=== PATIENT | male | born 1980 | race Caucasian/White ===

== ENCOUNTER 2016-08-11 09:58 | Day surgery (SDC) | payer OTHER ==
[~2016-08-11] VITALS: Ht 185.4 cm; Wt 124.0 kg
[~2016-08-11 09:58] MED LIST: ALPR0.254 PO; ALPR1T PO; ALPR1TAB2 PO; AMPH30TA2 PO; CLN.1T PO; CLON0.2T PO; CYCL10TA9 PO; HCTZ12.5T PO; IBUP800T26 PO; NAPR500T3 PO; NS IV 1000 ML 1,000 ML ONE; OMEP10CA4 PO; OMEP40CA36 PO; OXYC30TA80 PO; TEST200V27 IM; TRAZ-28 PO; [UNRECOGNIZED DRUG - OTHER]
--- OUTSIDE RECORDS SUMMARY | 2016-08-11 10:02 | XMS REPORT | Continuity of Care Document ---
Author Author [facility] Organization [facility] Address Unknown Phone Unavailable Care Team Providers Care Medical Appliance Maker Name Role Phone IVAN MCKEON MD PCP Insurance Providers Payer Name Policy Number Subscriber Name Relationship Unknown Thomas Bermudez 18 Self / Same As Patient Advance Directives Directive Response Recorded Date/Time Advance Directives No 02/10/16 2:52pm Health Care Power of Solid Waste Engineer No 02/10/16 2:52pm Organ Donor Yes 02/10/16 2:52pm Resuscitation Status Full Code 02/10/16 2:52pm Chief Complaint and Reason for Visit Chief Complaint Substance Abuse Reason for Visit Prescription drug abuse Elevated liver enzymes Hypokalemia Problems Active Problems Medical Problem Onset Date Status Elevated liver enzymes Unknown Acute Epigastric pain Unknown Acute Headache Unknown Acute Hypertensive urgency Unknown Acute Hypertensive urgency Unknown Acute Hypokalemia Unknown Acute Prescription drug abuse Unknown Acute Right upper quadrant pain Unknown Acute Medications Current Home Medications Medication Dose Units Route Directions Days/Qty Instructions Start Date Hydrochlorothiazide 12.5 Mg 12.5 Mg Oral Daily 05/27/14 Clonidine Hcl 0.2 Mg 0.2 Mg Oral Twice A Day 12/17/15 Omeprazole 40 Mg 40 Mg Oral Daily 12/17/15 Dextroamphetamine/Amphetamine 30 Mg 30 Mg Oral Twice A Day 12/17/15 Naproxen 500 Mg 500 Mg Oral Twice A Day 12/17/15 Trazodone Hcl 50 Mg 100 Mg Oral Bedtime 02/10/16 Cyclobenzaprine Hcl 10 Mg 10 Mg Oral Three Times A Day as needed for Pain 07/04/16 Alprazolam 1 Mg 1 Mg Oral Four Times Daily as needed for Anxiety 11/22 Past Home Medications Medication Directions Ordered Status [Cyboxen] , 01/24/12 Discontinued Clonidine Hcl 0.1 Mg Tab, 0.2 Mg Oral Twice A Day 01/24/12 Discontinued Alprazolam 1 Mg Tablet, 1 Mg Oral Four Times Daily as needed for Anxiety 25/07 Discontinued Omeprazole 10 Mg Capsule.dr, 30 Mg Oral Daily 05/27/14 Discontinued Ibuprofen (Motrin) 800 Mg Tablet, 800 Mg Oral Three Times A Day 05/27/14 Discontinued Cyclobenzaprine Hcl (Flexeril) 10 Mg Tablet, 10 Mg Oral Three Times A Day as needed for Muscle Pain 05/27/14 Discontinued Oxycodone Hcl 30 Mg Tablet, 30 Mg Oral Three Times A Day as needed for Pain 12/17/15 Discontinued Testosterone Cypionate 200 Mg/1 Ml Vial, 100 Mg Intramusc As Directed Discontinued Alprazolam 0.25 Mg Tablet, 0.25 Mg Oral Every 8HRS 12/17/15 Discontinued Social History Social History Problem Response Recorded Date/Time Alcohol Use Denies Use 02/10/2016 2:52pm Recreational Drug Use Yes 02/10/2016 3:30pm Recent Foreign Travel No 02/10/2016 2:40pm Recent Infectious Disease Exposure No 02/10/2016 2:40pm Sexually Transmitted Disease No 02/10/2016 2:52pm Smoking Status Unknown if Ever Smoked 02/10/2016 2:52pm Query Response Start Date Stop Date Smoking Status Unknown if Ever Smoked Hospital Discharge Instructions No hospital discharge instructions. Plan of Care Discharge Date 02/10/16 4:22pm Disposition 01 HOME, SELF-CARE Condition at Discharge Stable Instructions/Education Provided ALCOHOL AND SUBSTANCE ABUSE Prescriptions See Medication Section Referrals IVAN MCKEON MD - Primary Care Physician IVAN MCKEON MD - Primary Care Physician SALINAS MCDONOUGH MD - Additional Instructions/Education KEEP YOUR APPOINTMENT WITH DR. MUNOZ ON WEDNESDAY AT [facility] KEEP YOUR APPOINTMENT WITH DR. MCDONOUGH ON 02/18/16 TO ESTABLISH CARE MOM NEEDS TO MONITOR AND DISPENSE ALL MEDICATIONS RETURN TO ER IF SYMPTOMS WORSEN All discharge instructions reviewed with patient and/or family. Voiced understanding. Functional Status No functional status results. Allergies, Adverse Reactions, Alerts No known allergies. Immunizations Name Given Type Tetanus Booster (TDap) Less than 5yrs Historical Vital Signs Acute Vital Signs Vital Response Date/Time Temperature (Fahrenheit) 98 degrees F (97.6 - 99.5) 02/10/2016 2:40pm Temperature (Calculated Celsius) 36.6696 degrees C (36.4 - 37.5) 02/10/2016 2 :40pm Pulse Rate (adult) 102 bpm (60 - 90) 02/10/2016 2:40pm Respiratory Rate 18 bpm (12 - 24) 02/10/2016 2:40pm O2 Sat by Pulse Oximetry 98 % (88 - 100) 02/10/2016 2:40pm Blood Pressure 140/106 mm Hg 02/10/2016 2:40pm Blood Pressure Mean 117 mm Hg 02/10/2016 2:40pm Pain Numeric Pain Scale 0-No Pain 02/10/2016 2:40pm Height (Feet) 6 feet 02/10/2016 2:40pm Height (Calculated Centimeters) 182.413530 cm 02/10/2016 2:40pm Weight (Pounds) 273 pounds 02/10/2016 2:40pm Weight (Calculated Kilograms) 123.646563 kilograms 02/10/2016 2:40pm Height 6 ft 0 in Weight 273 lb Body Mass Index 37.0 kg/m^2 Results Laboratory Results Test Name Result Units Flags Reference Collection Date/Time Result Date/ Time Comments White Blood Count 6.9 10^3/uL 4.3-11.0 02/10/2016 3:15pm 02/10/2016 3: 25pm Red Blood Count 5.14 10^6/uL 4.35-5.85 02/10/2016 3:15pm 02/10/2016 3: 25pm Hemoglobin 13.0 G/DL L 13.3-17.7 02/10/2016 3:15pm 02/10/2016 3:25pm Hematocrit 40 % 40-54 02/10/2016 3:15pm 02/10/2016 3:25pm Mean Corpuscular Volume 77 FL L 80-99 02/10/2016 3:15pm 02/10/2016 3: 25pm Mean Corpuscular Hemoglobin 25 PG 25-34 02/10/2016 3:15pm 02/10/2016 3: 25pm Mean Corpuscular Hemoglobin Concent 33 G/DL 32-36 02/10/2016 3:1511/2015 3:25pm Red Cell Distribution Width 13.8 % 10.0-14.5 02/10/2016 3:15pm 2015 3:25pm Platelet Count 221 10^3/uL 130-400 02/10/2016 3:15pm 02/10/2016 3:25pm Mean Platelet Volume 10.9 FL H 7.4-10.4 02/10/2016 3:1502/10/2016 3: 25pm Neutrophils (%) (Auto) 60 % 42-75 02/10/2016 3:1502/10/2016 3:25pm Lymphocytes (%) (Auto) 27 % 12-44 02/10/2016 3:1502/10/2016 3:25pm Monocytes (%) (Auto) 9 % 0-12 02/10/2016 3:1502/10/2016 3:25pm Eosinophils (%) (Auto) 4 % 0-10 02/10/2016 3:02/10/2016 3:25pm Basophils (%) (Auto) 0 % 0-10 02/10/2016 3:02/10/2016 3:25pm Neutrophils # (Auto) 4.1 X 10^3 1.8-7.8 02/10/2016 3:15pm 02/10/2016 3: 25pm Lymphocytes # (Auto) 1.9 X 10^3 1.0-4.0 02/10/2016 3:15pm 02/10/2016 3: 25pm Monocytes # (Auto) 0.6 X 10^3 0.0-1.0 02/10/2016 3:02/10/2016 3: 25pm Eosinophils # (Auto) 0.2 10^3/uL 0.0-0.3 02/10/2016 3:15pm 02/10/2016 3 :25pm Basophils # (Auto) 0.0 10^3/uL 0.0-0.1 02/10/2016 3:15pm 02/10/2016 3: 25pm Urine Color CINTHYA * 02/10/2016 3:05pm 02/10/2016 3:32pm Urine Clarity SLIGHTLY CLOUDY 02/10/2016 3:05pm 02/10/2016 3:32pm Urine pH 5 5-9 02/10/2016 3:05pm 02/10/2016 3:32pm Urine Specific [place] 1.025 * 1.016-1.022 02/10/2016 3:05pm 2015 3:32pm Urine Protein 2+ * NEGATIVE 02/10/2016 3:05pm 02/10/2016 3:32pm Urine Glucose (UA) NEGATIVE NEGATIVE 02/10/2016 3:05pm 02/10/2016 3: 32pm Urine RBC (Auto) NEGATIVE NEGATIVE 02/10/2016 3:05pm 02/10/2016 3: 32pm Urine Ketones NEGATIVE NEGATIVE 02/10/2016 3:05pm 02/10/2016 3:32pm Urine Nitrite NEGATIVE NEGATIVE 02/10/2016 3:05pm 02/10/2016 3:32pm Urine Bilirubin 1+ * NEGATIVE 02/10/2016 3:05pm 02/10/2016 3:32pm Urine Urobilinogen 1 MG/DL NORMAL 02/10/2016 3:05pm 02/10/2016 3:32pm Urine Leukocyte Esterase 1+ * NEGATIVE 02/10/2016 3:05pm 02/10/2016 3: 32pm Urine RBC NONE /HPF 02/10/2016 3:05pm 02/10/2016 3:32pm Urine WBC 2-5 /HPF 02/10/2016 3:05pm 02/10/2016 3:32pm Urine Bacteria NONE /HPF 02/10/2016 3:05pm 02/10/2016 3:32pm Urine Crystals NONE /LPF 02/10/2016 3:05pm 02/10/2016 3:32pm Urine Casts NONE /LPF 02/10/2016 3:05pm 02/10/2016 3:32pm Urine Mucus LARGE /LPF * 02/10/2016 3:05pm 02/10/2016 3:32pm Urine Culture Indicated NO 02/10/2016 3:05pm 02/10/2016 3:32pm Sodium Level 139 MMOL/L 135-145 02/10/2016 3:15pm 02/10/2016 3:56pm Potassium Level 3.1 MMOL/L L 3.6-5.0 02/10/2016 3:15pm 02/10/2016 3:56pm Chloride Level 97 MMOL/L L 98-107 02/10/2016 3:15pm 02/10/2016 3:56pm Carbon Dioxide Level 30 MMOL/L 21-32 02/10/2016 3:15pm 02/10/2016 3: 56pm Anion Gap 12 MMOL/L 5-14 02/10/2016 3:15pm 02/10/2016 3:56pm Blood Urea Nitrogen 17 MG/DL 7-18 02/10/2016 3:15pm 02/10/2016 3:56pm Creatinine 1.16 MG/DL 0.60-1.30 02/10/2016 3:1502/10/2016 3:56pm BUN/Creatinine Ratio 02/10/2016 3:15pm 02/10/2016 3:56pm Estimat Glomerular Filtration Rate > 60 02/10/2016 3:15pm 2015 3:56pm GFR INTERPRETIVE DATA UNITS FOR ESTIMATED GFR (eGFR): mL/min/1.73 M2 REFERENCE RANGE FOR ESTIMATED GFR (eGFR) eGFR NORMAL eGFR >60 MODERATELY DECREASED eGFR 30-59 SEVERLY DECREASED eGFR 15-29 KIDNEY FAILURE <15 (OR DIALYSIS) Glucose Level 117 MG/DL H 70-105 02/10/2016 3:pm 02/10/2016 3:56pm Calcium Level 9.4 MG/DL 8.5-10.1 02/10/2016 3:15pm 02/10/2016 3:56pm Magnesium Level 1.9 MG/DL 1.8-2.4 02/10/2016 3:1502/10/2016 3:56pm Total Bilirubin 0.7 MG/DL 0.1-1.0 02/10/2016 3:02/10/2016 3:56pm Alkaline Phosphatase 74 U/L 40-136 02/10/2016 3:02/10/2016 3:56pm Aspartate Amino Transf (AST/SGOT) 54 U/L H 5-34 02/10/2016 3:2015 3:56pm Alanine Aminotransferase (ALT/SGPT) 56 U/L H 0-55 02/10/2016 3:pm 02/09 3:56pm Total Protein 7.0 G/DL 6.4-8.2 02/10/2016 3:02/10/2016 3:56pm Albumin 4.3 G/DL 3.2-4.5 02/10/2016 3:02/10/2016 3:56pm Amylase Level 34 U/L 25-125 02/10/2016 3:15pm 02/10/2016 3:56pm TSH [place] Testing 0.56 UIU/ML 0.35-4.94 02/10/2016 3:15pm 02/10/2016 4:13pm Salicylates Level < 5.0 MG/DL L 5.0-20.0 02/10/2016 3:15pm 02/10/2016 3: 56pm Acetaminophen Level < 10 UG/ML L 10-30 02/10/2016 3:15pm 02/10/2016 3: 56pm Acetaminophen Screen NEGATIVE NEGATIVE 02/10/2016 3:05pm 02/10/2016 3 :35pm APAP=ACETAMINOPHEN/PARACETAMOL Procedures Procedure Status Date Provider(s) Tracing only of electrocardiogram Active 02/10/16 KADI VIDES DO Encounters Encounter Location Arrival/Admit Date Discharge/Depart Date Attending Provider Departed Emergency Room [facility] 02/10/16 2:27pm 02/09 4:22pm KADI VIDES DO Recent Diagnosis
--- OUTSIDE RECORDS SUMMARY | 2016-08-11 10:03 | XMS REPORT | Continuity of Care Document ---
Author Author [facility] Organization [facility] Address Unknown Phone Unavailable Care Team Providers Care Tying Machine Operator Name Role Phone IVAN MCKEON MD PCP Insurance Providers Payer Name Policy Number Subscriber Name Relationship Unknown Thomas Bermudez 18 Self / Same As Patient Advance Directives Directive Response Recorded Date/Time Advance Directives No 02/10/16 2:52pm Health Care Power of Object Oriented Developer No 02/10/16 2:52pm Organ Donor Yes 02/10/16 [...] APPOINTMENT WITH DR. MUNOZ ON WEDNESDAY AT [facility] KEEP YOUR APPOINTMENT WITH DR. MCDONOUGH [...] 6 feet 02/10/2016 2:40pm Height (Calculated Centimeters) 182.231541 cm 02/10/2016 2:40pm Weight (Pounds) 273 pounds 02/10/2016 2:40pm Weight (Calculated Kilograms) 123.232342 kilograms 02/10/2016 2:40pm Height 6 ft 0 [...] 5-9 02/10/2016 3:05pm 02/10/2016 3:32pm Urine Specific [place] 1.025 * 1.016-1.022 02/10/2016 3:05pm 2015 3:32pm [...] U/L 25-125 02/10/2016 3:15pm 02/10/2016 3:56pm TSH [place] Testing 0.56 UIU/ML 0.35-4.94 02/10/2016 3:15pm 02/10/2016 [...] Date Attending Provider Departed Emergency Room [facility] 02/10/16 2:27pm 02/09 4:22pm KADI VIDES DO Recent Diagnosis
[2016-08-11] MEDS ORDERED: fentaNYL INJECTION 100 MCG/2 ML AMP IVP PRN (10:15)
[2016-08-11] MEDS ORDERED: HURRICAINE EXT TUBE (BENZOCAINE) XX PRN (10:15)
[2016-08-11] MEDS ORDERED: FLUMAZENIL (ROMAZICON) 0.1 MG/ML 5 ML VIAL INJ PRN (10:15)
[2016-08-11] MEDS ORDERED: MIDAZOLAM 2 MG/2 ML (VERSED) VIAL IVP PRN (10:15)
[2016-08-11] MEDS ORDERED: NALOXONE 0.4 MG/ML 1 ML (NARCAN) VIAL IVP PRN (10:15)
[2016-08-11 10:20] VITALS: BP 177/119
[2016-08-11] MEDS ORDERED: SUCR1TAB36 PO (10:28)
[2016-08-11] MEDS ORDERED: BUSP10TA95 PO (10:28)
[2016-08-11] MEDS ORDERED: BREX1TAB PO (10:28)
[2016-08-11] MEDS ORDERED: AMLO5TAB2 PO (10:28)
[2016-08-11] MEDS ORDERED: ONDN4T PO (10:28)
[2016-08-11] MEDS ORDERED: MIDAZOLAM 5 MG/5 ML (VERSED) VIAL ONE (14:07)
--- NOTE | 2016-08-11 14:15 | Progress Note-Pre Operative ---
Pre-Operative Progress Note H&P Reviewed The H&P was reviewed, patient examined and no changes noted. Date H&P Reviewed: Aug 11, 2016 Time H&P Reviewed: 14:15 Pre-Operative Diagnosis: gerd AVA CORTEZ DO Aug 11, 2016 2:15 pm
[2016-08-11] MEDS ORDERED: proPOfol 200 MG/20 ML (DIPRIVAN) VIAL IV ONE ×2 (15:07→15:29)
[2016-08-11] MEDS ORDERED: PANT40TA2 PO ×2 (15:52→15:57)
--- NOTE | 2016-08-11 15:54 | Discharge Inst-Simple/Standard ---
Discharge Inst-Standard Discharge Medications New, Converted or Re-Newed RX: Transmitted to Pharmacy Patient Instructions/Follow Up Plan of Care/Instructions/FU: Follow up with Dr. Raymond in 2 weeks. Take protonix 40 mg once a day before breakfast. Continue with Carafate 1 gm 4 times a day Clear liquid diet for 2 days. Activity as Tolerated: Yes Discharge Diet: Liquid Diet (Clear liquid diet x 2 days) KODAK MORALES APRN Aug 11, 2016 15:54
--- NOTE | 2016-08-11 15:57 | Progress Note-Post Operative ---
Post-Operative Progess Note Pre-Operative Diagnosis gerd Post-Operative Diagnosis gastritis, hiatal hernia, severe esophagitis Post-Op Procedure Note Date of Procedure: Aug 11, 2016 Name of Procedure: egd c biopsies, and brushings of esophagus Procedure Note/Findings see note Anesthesia Type per private watchman Estimated blood loss (mL): none Specimen(s) collected antrum, body and esophagus, brushings of esophagus AVA CORTEZ DO Aug 11, 2016 3:57 pm
[2016-08-11 16:15] VITALS: BP 140/82
[2016-08-11 16:45] VITALS: BP 154/112
[2016-08-11 16:50] VITALS: BP 154/112
--- NOTE | 2016-08-12 09:29 | OPERATIVE REPORT ---
PROCEDURE PHYSICIAN: AVA CORTEZ DATE OF PROCEDURE: 08/11/2016 PREOPERATIVE DIAGNOSIS: GERD. POSTOPERATIVE DIAGNOSES: 1. Gastritis. 2. Hiatal hernia. 3. Severe esophagitis. PROCEDURE: EGD with biopsy of the antrum, body, and esophagus and brushings of the esophagus. SURGEON: Mandi. ANESTHESIA: Per DRY ROOM OPERATOR. ESTIMATED BLOOD LOSS: None. COMPLICATIONS: None. INDICATIONS: The patient is a 36-year-old male who has been having severe reflux symptoms and chest pain. The patient with gastroesophageal reflux disease that he has not been able to keep under control. The patient understands the risks and benefits of procedure and wished to proceed with procedure. Consent was signed on the chart. PROCEDURE: The patient was taken to the endoscopy suite, placed in left lateral recumbent position. Timeout was performed. The scope was in the mouth on esophagus, stomach and into the duodenum without difficulty. The duodenum had no polyps, masses, ulcerations. The scope was then slowly retracted back into the stomach where it was further insufflated noting erythematous changes of the stomach which biopsies of the antrum of the body were obtained. The scope was also retroflexed noting a small hiatal hernia. Biopsy of the antrum and the body were obtained. The scope was then returned to its normal position slowly withdrawn back into the distal esophagus, which had severe inflammation and friable tissue. There was also a white exudate present. Biopsies of the esophagus were obtained along with brushings. We will consider this possibly being a fungal esophagitis. The scope was then the scope was slowly retracted until completely removed noting no further pathology. The patient tolerated the procedure well without any complications. He was taken to the recovery room in stable condition. RECOMMENDATIONS: The patient will be on Protonix twice a day 40 mg p.o. and Carafate 1 tablet with meals and at bedtime. The patient will follow-up in approximately 2 to 3 weeks to see how he is doing at that time. If he has any worsening conditions, he should be reevaluated at that time. The patient is recommended to stay on a clear liquid diet for approximately 2 to 3 more days. Would consider work-up for immunocompromise state if he has not done so. We will discuss this with him and have him follow-up with his primary care provider for this. Job ID: [id number] Dictated Date: 08/11/2016 16:07:07 Commercial Relationship Manager Date: 08/12/2016 09:21:12 / mau
== END 2016-08-11 16:50 | disposition home or self-care (01) ==
LOC: SDC 09:58
PROVIDERS: ATTEND Surgery
DX: K29.70 Gastritis, unspecified, without bleeding (principal); K20.9 Esophagitis, unspecified; K44.9 Diaphragmatic hernia without obstruction or gangrene
CPT/HCPCS: 87101; 87106

== ENCOUNTER 2018-04-15 05:34 | Outpatient (CLI) | payer SELFPAY ==
[~2018-04-15] VITALS: Ht 185.4 cm; Wt 123.8 kg
[~2018-04-15 05:34] MED LIST changes: +AMLO5TAB7 PO; +BREX1TAB PO; +BUSP10TA95 PO; +NAPR-915 PO; -NAPR500T3 PO; -NS IV 1000 ML 1,000 ML ONE; +ONDN4T PO; +PANT40TA2 PO; +SUCR1TAB36 PO; +TRAZ-189 PO; -TRAZ-28 PO
[2018-04-15] MEDS ORDERED: HYDR25TA4 PO (08:48)
[2018-04-15] MEDS ORDERED: AMLO10TA6 PO (08:48)
[2018-04-15] MEDS ORDERED: TRAZ-190 PO (08:48)
[2018-04-15] MEDS ORDERED: ATEN50TA PO (08:48)
[2018-04-15] MEDS ORDERED: PANT40TA3 PO (08:48)
[2018-04-15] MEDS ORDERED: BUSP30TA2 PO (08:48)
[2018-04-15] MEDS ORDERED: BUPR300T51 PO (08:48)
[2018-04-15] MEDS ORDERED: BUPR1FIL3 SL (08:48)
[2018-04-15] MEDS ORDERED: BUPR150T7 PO (08:48)
== END 2018-04-15 08:54 | disposition home or self-care (01) ==
LOC: PREOP 05:34
PROVIDERS: ATTEND Surgery
DX: Z01.818 Encounter for other preprocedural examination (principal)

== ENCOUNTER 2018-04-18 07:46 | Day surgery (SDC) | payer SELFPAY ==
[~2018-04-18] VITALS: Ht 185.4 cm; Wt 123.8 kg
[~2018-04-18 07:46] MED LIST changes: +AMLO10TA6 PO; +ATEN50TA PO; +BUPR150T7 PO; +BUPR1FIL3 SL; +BUPR300T51 PO; +BUSP30TA2 PO; +HYDR25TA4 PO; +PANT40TA3 PO; +TRAZ-190 PO
[2018-04-18] MEDS ORDERED: LIDOCAINE/EPI 1%-1:200,000 (XYLOCAINE) 10 ML VIAL ONE (08:14)
[2018-04-18 08:20] VITALS: BP 136/80
[2018-04-18] MEDS ORDERED: ONDANSETRON 4 MG/2 ML (SDV) Z0FRAN ONE (08:29)
[2018-04-18] MEDS ORDERED: DEXAMETHASONE 10 MG/ML (DECADRON) 1 ML VIAL ONE (08:29)
[2018-04-18] MEDS ORDERED: SEVOFLURANE (ULTANE) 15 ML INHAL SOLN ONE (08:29)
[2018-04-18] MEDS ORDERED: proPOfol 200 MG/20 ML (DIPRIVAN) VIAL IV ONE (08:29)
[2018-04-18] MEDS ORDERED: LIDOCAINE PF 2% 2 ML (XYLOCAINE) VIAL ONE ×2 (08:29→08:30)
[2018-04-18] MEDS ORDERED: MIDAZOLAM 2 MG/2 ML (VERSED) VIAL ONE ×2 (08:30)
[2018-04-18] MEDS ORDERED: KETAMINE HCL 100 MG/ML 5 ML VIAL ONE (08:30)
[2018-04-18] MEDS ORDERED: FAMOTIDINE 20MG/2ML IV (PEPCID) IV ONE (08:30)
[2018-04-18] MEDS ORDERED: ceFAZolin 2 GM IV Premixed 50 ML ONE (08:31)
[2018-04-18] MEDS ORDERED: LACTATED RINGERS 1,000 ML IV PRN (08:43)
[2018-04-18] MEDS ORDERED: ceFAZolin 2 GM IV Premixed 50 ML IV ONE (08:45)
[2018-04-18] MEDS ORDERED: ceFAZolin 2 GM/50 ML PRE-MIX IVPB IV ONE (08:45)
--- NOTE | 2018-04-18 09:11 | Progress Note-Pre Operative ---
Pre-Operative Progress Note H&P Reviewed The H&P was reviewed, patient examined and no changes noted. Time Seen by Provider: 09:07 Date H&P Reviewed: Apr 18, 2018 Time H&P Reviewed: 09:08 Pre-Operative Diagnosis: back mass ALEXANDR FLORES DO Apr 18, 2018 09:11
--- NOTE | 2018-04-18 09:48 | Progress Note-Post Operative ---
Post-Operative Progess Note Surgeon (s)/Food Packer (s) Surgeon ALEXANDR FLORES DO Food Packer: CYNTHIA Moore Pre-Operative Diagnosis back mass Post-Operative Diagnosis Same pending path Procedure & Operative Findings Date of Procedure 04/18/18 Procedure Performed/Findings Exc of back mass in subcutaneous tissue, 4.9cm incision Anesthesia Type MAC Estimated Blood Loss Estimated blood loss (mL): scant Specimens/Packing Specimens Removed back mass, appx 2.6 x 1.4 x 1.6cm ALEXANDR FLORES DO Apr 18, 2018 09:48
[2018-04-18] MEDS ORDERED: ACHD5005 PO (09:49)
--- NOTE | 2018-04-18 09:51 | Discharge Inst-Surgical ---
Discharge Inst-Surgical Depart Medication/Instructions New, Converted or Re-Newed RX: RX Given to Pt/Family Patient Instructions Follow up Appt: Make appointment for 1 week. Instructions: No lifting greater than 10 pounds. No strenuous activity. May shower in 24 hours, no tub bath or soaking. Use incentive spirometer at home as directed. No Smoking Skin/Wound Care: May remove bandages in am. You need to leave the sutures in place, come to the office to have them removed. Symptoms to Report: Appetite Changes, Extremity Discoloration, Numbness/Tingling, Swelling Increased , Bleeding Excessive, Eyesight Changes, Pain Increased, Urine Color Change, Constipation(Persistent), Fever over 101 degree F, Pain/Pressure in chest, Urinating Difficulty, Cough Up/Vomit Blood, Heart Beat Irreg/Pounding, Pain/ Pressure in jaw, Cramps in feet or legs, Lightheadedness, Pain/Pressure in shoulder, Diarrhea(Persistent), Memory Changes Suddenly, Questions/Concerns, Weight gain consecutive days, Dizziness/Fainting, Nausea/Vomiting, Shortness of Breath, Weight gain over 2 pounds If questions or concerns contact your physician Or seek help at emergency department. Activity Activity Instructions: Avoid Stress to Incision Driving Instructions: No Driving/Refer to Diet Discharge Diet: No Restrictions Diet After 24 Hours: Clear Liquid if Nauseous If Any Problems/Questions/Issu: Contact Your Physician, Go to Emergency Room Skin/Wound Care Infection Signs and Symptoms: Increased Redness, Foul Odor of Wound, Increased Drainage, Skin Itchy or Has a Rash, Increased Swelling, Temperature Above 101 F Bathing Instructions: Shower Operative Area Clean and Dry: Keep Incision Clean/Dry Ice Pack: Ice On and Off Site (as needed for pain) ALEXANDR FLORES DO Apr 18, 2018 09:51
[2018-04-18] MEDS ORDERED: ONDANSETRON 4 MG/2 ML (SDV) Z0FRAN IVP PRN (10:00)
--- NOTE | 2018-04-18 10:09 | Anesthesia-General Post-Op ---
MAC Patient Condition Mental Status/LOC: Same as Preop Cardiovascular: Satisfactory Nausea/Vomiting: Absent Respiratory: Satisfactory Pain: Controlled Complications: Absent Post Op Complications Complications None Follow Up Care/Instructions Patient Instructions None needed. Anesthesiology Discharge Order Discharge Order Patient is doing well, no complaints, stable vital signs, no apparent adverse anesthesia problems. He tolerated the sedation well. CRISTIN BOSS DO Apr 18, 2018 10:09
[2018-04-18 10:20] VITALS: BP 105/89
[2018-04-18] MEDS ORDERED: HYDROcodone/APAP 5 MG/325 MG (LORTAB) TAB ONE (10:43)
[2018-04-18 10:50] VITALS: BP 117/85
[2018-04-18] MEDS ORDERED: HYDROcodone/APAP 5 MG/325 MG (LORTAB) TAB PO ONE (11:15)
--- NOTE | 2018-04-19 15:00 | OPERATIVE REPORT ---
DATE OF SERVICE: 04/18/2018 PREOPERATIVE DIAGNOSIS: Back mass. POSTOPERATIVE DIAGNOSIS: Back mass, pending pathology. PROCEDURE: Excision of back mass 4.9 cm incision. SURGEON: Shailesh Boyd DO. NURSERYPERSON: YENY Moore. SPECIMEN: Back mass approximately 2.6 x 1.4 x 1.6. BLOOD LOSS: Scant. FLUIDS: Per anesthesia. POSTOPERATIVE CONDITION: Stable. INDICATION FOR PROCEDURE: The patient is a 38-year-old male, who has a mass on his back and wanted to get this removed. He had had this "drained" before, but it has come back. It is not inflamed at this time. He wanted this within the appropriate time to get this removed. FINDINGS: The patient had a back mass, looked like it most likely a sebaceous cyst, removed with some subcutaneous tissue. A 4.9 cm incision was performed and the back mass measured about 2.6 x 1.4 x 1.6. I did take out approximately 4.9 cm elliptical incision of the skin. PROCEDURE NOTE: After informed consent was obtained, the patient was brought to the operating room and he was placed on the table in the prone position, sterilely prepped and draped in a normal fashion, marked an area on the skin to remove the back mass as well as the scar and I then injected the skin with local. I then made an incision with #15 blade, carried down through the skin and subcutaneous tissue, deepened down through the subcutaneous tissue with Bovie electrocautery, trying to get around this mass to get out some sebaceous material. It looked like a sebaceous cyst. Finally I was able to remove this en bloc and all of the cyst fowler, passed this off the table, measured about 2.6 x 1.4 x 1.6. Copiously irrigated with normal saline. Hemostasis was obtained using Bovie electrocautery. I then elected to close the incision with 2-0 nylon in three interrupted vertical mattress sutures and then in between these placed four simple sutures of 2-0 nylon. Area was cleaned and dried dressing placed. The patient was then transferred to recovery room in stable condition. Sponge, instrument and needle count correct at the end of the case. Job ID: [id number] DocumentID: [id number] Dictated Date: 04/19/2018 10:33:07 Experimental Assembler Date: 04/19/2018 15:00:05 Dictated By: SHAILESH BOYD DO MTDD
== END 2018-04-18 11:00 | disposition home or self-care (01) ==
LOC: SDC 07:46
PROVIDERS: ATTEND Surgery
DX: L72.0 Epidermal cyst (principal); I10 Essential (primary) hypertension; F41.0 Panic disorder [episodic paroxysmal anxiety]; F34.1 Dysthymic disorder; F32.9 Major depressive disorder, single episode, unspecified; K20.9 Esophagitis, unspecified; K29.70 Gastritis, unspecified, without bleeding; R79.89 Other specified abnormal findings of blood chemistry; Z87.891 Personal history of nicotine dependence; E66.9 Obesity, unspecified; Z68.38 Body mass index [BMI] 38.0-38.9, adult; Z79.899 Other long term (current) drug therapy; Z11.2 Encounter for screening for other bacterial diseases
CPT/HCPCS: 87081; 88304

== ENCOUNTER → 2019-07-28 | Outpatient (CLI) | payer BC ==
[~2019-07-28] MED LIST changes: +ACHD5005 PO; -AMLO10TA6 PO; +AMLO10TA7 PO; -AMLO5TAB7 PO; +AMLO5TAB9 PO; -TRAZ-189 PO; +TRAZ-222 PO
[2019-07-28 08:29] LABS: BASOPHILS % (AUTO) 0 % (0-10); EOSINOPHILS # (AUTO) 0.1 10^3/uL (0.0-0.3); EOSINOPHILS % (AUTO) 2 % (0-10); HEMATOCRIT 39 % (40-54); LYMPHOCYTES # (AUTO) 1.9 X 10^3 (1.0-4.0); LYMPHOCYTES % (AUTO) 36 % (12-44); MEAN CORPUSCULAR HEMOGLOBIN 28 PG (25-34); MEAN CORPUSCULAR HGB CONC 33 G/DL (32-36); MEAN CORPUSCULAR VOLUME 84 FL (80-99); MEAN PLATELET VOLUME 10.8 FL (7.4-10.4); MONOCYTES # (AUTO) 0.4 X 10^3 (0.0-1.0); MONOCYTES % (AUTO) 8 % (0-12); NEUTROPHILS # (AUTO) 2.8 X 10^3 (1.8-7.8); NEUTROPHILS % (AUTO) 54 % (42-75); PLATELET COUNT 193 10^3/uL (130-400); RED CELL DISTRIBUTION WIDTH 12.6 % (10.0-14.5); WHITE BLOOD COUNT 5.2 10^3/uL (4.3-11.0)
[2019-07-28 08:49] LABS: ALANINE AMINOTRANSFERASE 20 U/L (0-55); ALBUMIN 4.2 GM/DL (3.2-4.5); ALKALINE PHOSPHATASE 50 U/L (40-136); BILIRUBIN,TOTAL 0.3 MG/DL (0.1-1.0); BUN/CREATININE RATIO 16; CARBON DIOXIDE 27 MMOL/L (21-32); CHLORIDE 105 MMOL/L (98-107); CHOLESTEROL 156 MG/DL (< 200); GFR ESTIMATED > 60; GLUCOSE 106 MG/DL (70-105); HDL CHOLESTEROL 33 MG/DL (40-60); POTASSIUM 3.8 MMOL/L (3.6-5.0); SODIUM 141 MMOL/L (135-145); TOTAL PROTEIN 6.5 GM/DL (6.4-8.2); TRIGLYCERIDES 192 MG/DL (<150); VLDL CHOLESTEROL 38 MG/DL (5-40)
[2019-07-28 09:10] LABS: FREE T4 (FREE THYROXINE) 1.03 NG/DL (0.70-1.48)
== END ==
LOC: LAB 08:05
PROVIDERS: ATTEND Internal Medicine Endocrinology, Diabetes & Metabolism
DX: E29.1 Testicular hypofunction (principal)
CPT/HCPCS: 36415; 80053; 80061; 83001; 83002; 83540; 83550; 84146; 84439; 84443; 85025

== ENCOUNTER → 2019-08-01 | Outpatient (CLI) | payer BC | LOC: LAB 09:05 | PROVIDERS: ATTEND Internal Medicine Endocrinology, Diabetes & Metabolism | DX: E29.1 Testicular hypofunction (principal) | CPT/HCPCS: 36415; 82728; 84403 ==